=== PATIENT | female | born 1930 | race Caucasian/White ===

== ENCOUNTER → 2016-09-11 08:37 | Outpatient (CLI) | payer MEDICARE, OTHER ==
[2015-12-27 21:25] VITALS: BMI 35.7
[~2016-09-11 08:37] MED LIST: BYSTOLIC2.5 MG PO; CILOSTAZOL50 MG PO; COZAAR50 MG PO; LIPITOR20 MG PO; MOBIC7.5 MG PO; NEXIUM40 MG PO; XYZAL5 MG PO
== END | disposition home or self-care (01) ==
LOC: D.RT 08:37
DX: R06.00 Dyspnea, unspecified (principal)

== ENCOUNTER → 2016-12-01 12:34 | Outpatient (CLI) | payer MEDICARE, OTHER ==
[2015-12-27 21:25] VITALS: BMI 35.7
== END | disposition home or self-care (01) ==
LOC: D.US 12:34
DX: I65.23 Occlusion and stenosis of bilateral carotid arteries (principal)

== ENCOUNTER → 2018-11-30 12:38 | Outpatient (CLI) | payer MEDICARE, OTHER ==
[2015-12-27 21:25] VITALS: BMI 35.7
== END | disposition home or self-care (01) ==
LOC: D.US 11-26 11:30
PROVIDERS: ATTEND Internal Medicine Cardiovascular Disease
DX: I65.23 Occlusion and stenosis of bilateral carotid arteries (principal)

== ENCOUNTER → 2019-05-26 10:11 | Outpatient (CLI) | payer MEDICARE, OTHER ==
[2015-12-27 21:25] VITALS: BMI 35.7
== END | disposition home or self-care (01) ==
LOC: D.MRI 10:11
PROVIDERS: ATTEND Orthopaedic Surgery
DX: M54.5 Low back pain (principal)

== ENCOUNTER → 2019-11-24 12:23 | Outpatient (CLI) | payer MEDICARE, OTHER ==
[2019-07-20 11:32] VITALS: BMI 37.8
[~2019-11-24 12:23] MED LIST changes: +BREO ELLIPTA 11 EACH INH; +GLUCOSAMINE HC500 MG PO; +INCRUSE ELLI62.5 MCG INH; +LANOXIN IN0.5 MG/2 M IV; +LEVOCETIRIZI; +MULTAQ400 MG PO; +SINGULAIR10 MG PO; +TOPROL XL25 MG PO; +XARELTO20 MG PO
--- NOTE | 2019-11-24 13:15 | NUR ---
PT HAD EKG DONE AND IS IN NORMAL SINUS RHYTHM. DR. THOMAS NOTIFIED AND CAME OUT TO SPEAK WITH PT AND PT'S FAMILY. PT DRESSED AND TAKEN BACK TO VEHICLE. PROCEDURE IS CANCELLED.
== END | disposition home or self-care (01) ==
LOC: D.CATH 12:23
PROVIDERS: ATTEND Internal Medicine Interventional Cardiology
DX: I48.91 Unspecified atrial fibrillation (principal); Z53.9 Procedure and treatment not carried out, unspecified reason

== ENCOUNTER → 2020-03-12 14:09 | Outpatient (CLI) | payer MEDICARE, OTHER ==
[2019-07-20 11:32] VITALS: BMI 37.8
== END | disposition home or self-care (01) ==
LOC: D.LAB 14:09
PROVIDERS: ATTEND Internal Medicine Pulmonary Disease
DX: Z11.59 Encounter for screening for other viral diseases (principal)

== ENCOUNTER → 2020-03-15 12:45 | Outpatient (CLI) | payer MEDICARE, OTHER ==
[2019-07-20 11:32] VITALS: BMI 37.8
== END | disposition home or self-care (01) ==
LOC: D.RT 12:45
PROVIDERS: ATTEND Internal Medicine Pulmonary Disease
DX: R06.09 Other forms of dyspnea (principal); Z11.59 Encounter for screening for other viral diseases

== ENCOUNTER → 2020-11-21 10:39 | Outpatient (CLI) | payer MEDICARE, OTHER ==
[2019-07-20 11:32] VITALS: BMI 37.8
== END | disposition home or self-care (01) ==
LOC: D.CT 10:39
PROVIDERS: ATTEND Family Medicine
DX: R10.9 Unspecified abdominal pain (principal)